=== PATIENT | female | born 1975 | race Caucasian/White ===

== ENCOUNTER 2017-04-17 19:30 | Emergency (ER) | payer OTHER ==
[~2017-04-17] VITALS: Ht 167.6 cm; Wt 71.4 kg
[2017-04-17] MEDS ORDERED: TRAZODONE (19:53)
[2017-04-17] MEDS ORDERED: PAXIL (19:53)
[2017-04-17] MEDS ORDERED: IMITREX (19:53)
[2017-04-17] MEDS ORDERED: ONABOTULINUMTOXINA (19:53)
[2017-04-17] MEDS ORDERED: PROCHLORPERAZINE 5 MG/ML, 2ML IVPush ONE (20:00)
[2017-04-17] MEDS ORDERED: SODIUM CHLORIDE 0.9% 1,000ML IVBOLUS ONE (20:00)
[2017-04-17] MEDS ORDERED: DIPHENHYDRAMINE 50 MG/ML, 1ML IVPush ONE (20:00)
[2017-04-17] MEDS ORDERED: SODIUM CHLORIDE FLUSH 10ML SYR IVF ONE (20:00)
[2017-04-17] MEDS ORDERED: KETOROLAC 30 MG/1 ML IVPush ONE (20:00)
[2017-04-17 21:07] VITALS: BP 126/77
== END 2017-04-17 21:59 | disposition home or self-care (01) ==
LOC: ED 21:45
DX: R51 Headache (principal); G43.909 Migraine, unspecified, not intractable, without status migrainosus
CPT/HCPCS: 70450; 96361; 96374; 96375; 99285; J0780; J1200; J1885; J7030

== ENCOUNTER 2017-12-25 17:45 | Emergency (ER) | payer OTHER ==
[~2017-12-25] VITALS: Ht 167.6 cm; Wt 67.5 kg
[~2017-12-25 17:45] MED LIST: IMITREX; ONABOTULINUMTOXINA; PAXIL; TRAZODONE
[2017-12-25] MEDS ORDERED: DIPHENHYDRAMINE 50 MG/ML, 1ML IVPush ONE (18:00)
[2017-12-25] MEDS ORDERED: SODIUM CHLORIDE FLUSH 10ML SYR IVF ONE (18:00)
[2017-12-25] MEDS ORDERED: METOCLOPRAMIDE 5 MG/ML, 2ML IVPush ONE (18:00)
[2017-12-25] MEDS ORDERED: KETOROLAC 30 MG/1 ML IVPush ONE (18:00)
[2017-12-25] MEDS ORDERED: PROCHLORPERAZINE 5 MG/ML, 2ML IVPush ONE (18:30)
[2017-12-25] MEDS ORDERED: MORPHINE SULFATE 4 MG/ML, 1ML IVPush ONE (18:30)
[2017-12-25] MEDS ORDERED: SODIUM CHLORIDE 0.9%, 500ML IVBOLUS ONE (18:30)
[2017-12-25] MEDS ORDERED: MORPHINE SULFATE 4 MG/ML, 1ML ONE (18:47)
[2017-12-25] MEDS ORDERED: PROCHLORPERAZINE 5 MG/ML, 2ML ONE (18:47)
[2017-12-25] MEDS ORDERED: KETOROLAC 30 MG/1 ML ONE (18:47)
[2017-12-25 19:53] VITALS: BP 97/58
== END 2017-12-25 19:55 | disposition home or self-care (01) ==
LOC: ED 19:55
DX: G43.909 Migraine, unspecified, not intractable, without status migrainosus (principal)
CPT/HCPCS: 96374; 96375; 99284; J0780; J1885; J7040